=== PATIENT | male | born 2000 ===

== ENCOUNTER 2021-10-13 16:51 | Emergency (ER) | payer MEDICAID ==
[~2021-10-13] VITALS: Ht 172.7 cm; Wt 63.5 kg
[2021-10-13 21:41] VITALS: BP 144/92
== END 2021-10-13 22:02 | disposition home or self-care (01) ==
LOC: ER 16:51
DX: S52.501A Unspecified fracture of the lower end of right radius, initial encounter for closed fracture (principal); Z88.0 Allergy status to penicillin; W21.02XA Struck by soccer ball, initial encounter; Y93.66 Activity, soccer; Y92.89 Other specified places as the place of occurrence of the external cause; Y99.8 Other external cause status
CPT/HCPCS: 29125; 73110